=== PATIENT | female | born 1985 | race Caucasian/White ===

== ENCOUNTER 2020-03-26 06:10 | Day surgery (SDC) | payer BC, SELFPAY ==
[~2020-03-26] VITALS: Ht 160 cm; Wt 59.0 kg
[2020-03-26 06:31] LABS: HCG,QUAL RESULT NEGATIVE (NEGATIVE)
[2020-03-26] MEDS ORDERED: LIDOCAINE 1% 10 MG/ML, 20 ML MDV INJ ONE (08:00)
[2020-03-26] MEDS ORDERED: SUCCINYLCHOLINE CHLORIDE 20 MG/ML(QUELICIN) IVP ONE (08:00)
[2020-03-26] MEDS ORDERED: ROCURONIUM BROMIDE 10 MG/ML (ZEMURON) IV ONE (08:00)
[2020-03-26] MEDS ORDERED: PROPOFOL 200MG/ 20ML VIAL (DIPRIVAN) IV ONE (08:00)
[2020-03-26] MEDS ORDERED: NS 1000 ML IV.SOLN IV ONE (08:00)
[2020-03-26] MEDS ORDERED: BUPIVACAINE /PF 0.5% 30 ML VIAL INJ ONE (08:00)
[2020-03-26] MEDS ORDERED: ONDANSETRON HCL 4 MG/2 ML VIAL IVP ONE (08:00)
[2020-03-26] MEDS ORDERED: fentaNYL CITRATE/PF 100 MCG/2 ML AMP IVP ONE (08:00)
[2020-03-26] MEDS ORDERED: CEFAZOLIN 1 GM IVPB PREMIX 50 ML IV ONE (08:00)
[2020-03-26] MEDS ORDERED: MIDAZOLAM HCL 5 MG/5 ML VIAL IVP ONE (08:00)
[2020-03-26] MEDS ORDERED: WATER FOR IRRIGATION,STERILE 1,000 ML IRRIG.SOLN IR ONE (08:00)
[2020-03-26] MEDS ORDERED: SEVOFLURANE 15 MIN GAS INH ONE (08:00)
[2020-03-26] MEDS ORDERED: METOCLOPRAMIDE HCL 10 MG/2 ML VIAL IVP PRN (08:45)
[2020-03-26] MEDS ORDERED: OXYCODONE/ACETAMINOPHEN 5-325 TABLET PO PRN ×2 (09:15)
[2020-03-26] MEDS ORDERED: HYDROcodone/ACETAMIN 5-325 MG TAB (NORCO/ VICODIN) PO PRN (09:15)
[2020-03-26] MEDS ORDERED: ONDANSETRON HCL 4 MG/2 ML VIAL IVP PRN (09:15)
[2020-03-26] MEDS: HYDROmorphone 1 MG INJ. 1 MG/ML AMPUL IVP PRN (09:35)
[2020-03-26] MEDS ORDERED: HYDROmorphone 1 MG INJ. 1 MG/ML AMPUL ONE (09:54)
[2020-03-26] MEDS: ONDANSETRON HCL 4 MG/2 ML VIAL ONE (10:35)
[2020-03-26] MEDS: METOCLOPRAMIDE HCL 10 MG/2 ML VIAL ONE (12:50)
[2020-03-26 13:12] VITALS: BP_SYST 98
== END 2020-03-26 14:45 | disposition home or self-care (01) ==
LOC: SDS 06:10 → SMU 06:21 → SDS 14:45
PROVIDERS: ATTEND Specialist
DX: N92.6 Irregular menstruation, unspecified (principal); D25.0 Submucous leiomyoma of uterus; N83.202 Unspecified ovarian cyst, left side; F41.9 Anxiety disorder, unspecified; Z79.899 Other long term (current) drug therapy; Z20.828 Contact with and (suspected) exposure to other viral communicable diseases
CPT/HCPCS: 49320; 58558; 84703; 88305; J0330; J0690; J1170; J2001; J2250; J2405; J2704; J2765; J3010; J3490; J7030; J7120; U0003; E0190